=== PATIENT | female | born 2000 | race Caucasian/White ===

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

== ENCOUNTER 2023-04-16 08:40 | Emergency (ER) | payer MEDICAID ==
[~2023-04-16] VITALS: Ht 154.9 cm; Wt 82.0 kg
[2023-04-16 08:57] VITALS: O2SAT 99
[2023-04-16] MEDS ORDERED: OXYCODONE HCL/ACETAMINOPHEN 5/325MG TABLET PO ONE (11:00)
[2023-04-16 11:51] VITALS: BP 135/93
[2023-04-16 14:44] VITALS: PULSE 128; RESP 18; TEMP 98.9
[2023-04-16] MEDS ORDERED: IOHEXOL-300 100 ML BOTTLE ONE (16:43)
== END 2023-04-16 14:44 | disposition home or self-care (01) ==
LOC: ER 09:21
DX: R10.30 Lower abdominal pain, unspecified (principal); R51.9 Headache, unspecified; F12.90 Cannabis use, unspecified, uncomplicated; V89.2XXA Person injured in unspecified motor-vehicle accident, traffic, initial encounter; W22.10XA Striking against or struck by unspecified automobile airbag, initial encounter; Y93.89 Activity, other specified; Y92.89 Other specified places as the place of occurrence of the external cause; Y99.8 Other external cause status
CPT/HCPCS: 81025; 70450; 70490; 74177; 99285; Q9967; Z7610

== ENCOUNTER 2023-09-27 14:49 | Emergency (ER) | payer MEDICAID ==
[~2023-09-27] VITALS: Ht 154.9 cm; Wt 87.0 kg
[2023-09-27 15:00] VITALS: BP 143/81; PULSE 90; RESP 12; TEMP 98.3; O2SAT 99
[2023-09-27] MEDS: KETOROLAC 15MG/ML VIAL IM ONE (16:05)
[2023-09-27] MEDS ORDERED: AMOX1TAB16 MT (16:16)
== END 2023-09-27 17:29 | disposition home or self-care (01) ==
LOC: ER 14:49
DX: S02.2XXA Fracture of nasal bones, initial encounter for closed fracture (principal); S02.40DA Maxillary fracture, left side, initial encounter for closed fracture; F12.10 Cannabis abuse, uncomplicated; Y04.0XXA Assault by unarmed brawl or fight, initial encounter; Y93.89 Activity, other specified; Y92.89 Other specified places as the place of occurrence of the external cause; Y99.8 Other external cause status
CPT/HCPCS: 99285; 70486; 81025; 96372; J1885

== ENCOUNTER 2023-09-28 16:00 | Emergency (ER) | payer MEDICAID ==
[~2023-09-28] VITALS: Ht 165.1 cm; Wt 104.0 kg
[~2023-09-28 16:00] MED LIST: AMOX1TAB16 MT
[2023-09-28 16:14] VITALS: PULSE 98; RESP 20
[2023-09-28 16:18] VITALS: BP 153/118; TEMP 98.3; O2SAT 99
== END 2023-09-28 16:34 | disposition left against medical advice (07) ==
LOC: ER 16:00
DX: R22.0 Localized swelling, mass and lump, head (principal); F12.10 Cannabis abuse, uncomplicated
CPT/HCPCS: 99281

== ENCOUNTER 2024-02-29 20:59 | Emergency (ER) | payer MEDICAID ==
[~2024-02-29] VITALS: Ht 165.1 cm; Wt 70.0 kg
[2024-02-29 21:02] VITALS: BP 150/90; PULSE 110; RESP 18; TEMP 98; O2SAT 100
[2024-02-29] MEDS: BACITRACIN ZINC OINT UDPKT TOP ONE (21:45)
[2024-02-29] MEDS: LIDOCAINE HCL/PF 1% 10 MG/ML 5ML VIAL INFIL ONE (22:04)
[2024-02-29] MEDS: TETANUS, DIPHTHERIA, PERTUSSIS VAC/PF 0.5ML (>10YR OLD) IM ONE (22:04)
[2024-02-29] MEDS: LORAZEPAM 2MG/ML INJ IM ONE (22:04)
[2024-02-29] MEDS: MORPHINE SULFATE 4 MG/ML INJ (FOR IV/IM USE) IV ONE (22:56)
[2024-02-29] MEDS: ONDANSETRON HCL 4MG/2ML INJ IV ONE (22:56)
[2024-02-29 23:30] LABS: HCG SCREEN NEGATIVE
[2024-03-01] MEDS ORDERED: NAPR-679 MT (01:46)
[2024-03-01] MEDS ORDERED: TOPUD MT (01:46)
[2024-03-01] MEDS ORDERED: CIPR500S3 MT (01:46)
[2024-03-01] MEDS: MORPHINE SULFATE 2 MG/ML INJ (NOT FOR IM USE) IV ONE (02:58)
== END 2024-03-01 03:38 | disposition home or self-care (01) ==
LOC: ER 20:59
DX: S01.01XA Laceration without foreign body of scalp, initial encounter (principal); S01.311A Laceration without foreign body of right ear, initial encounter; F12.10 Cannabis abuse, uncomplicated; Z79.1 Long term (current) use of non-steroidal anti-inflammatories (NSAID); X58.XXXA Exposure to other specified factors, initial encounter; Y93.89 Activity, other specified; Y92.89 Other specified places as the place of occurrence of the external cause; Y99.8 Other external cause status
CPT/HCPCS: 84703; 90715; 12014; 90471; 96372; 96374; 96375; 99285; 70450; 70486; 96376; J3490; J2060; J2405; J2270 ×2; Z7610 ×4